=== PATIENT | female | born 1965 | race Caucasian/White ===

== ENCOUNTER 2017-05-08 19:05 | Inpatient (IN) | payer OTHER ==
[~2017-05-08] VITALS: Ht 152.4 cm; Wt 95.8 kg
[2017-05-08 20:01] LABS: microscopic required? NO
[2017-05-08 20:13] LABS: BASOPHIL % 0.7 % (0-2); PLATELET COUNT 256 x10^3mcL (130-400)
[2017-05-08 20:14] LABS: CALCIUM 9.1 mg/dL (8.5-10.1); CARBON DIOXIDE 30.2 mmol/L (21-32); CREATININE SERUM 1.2 mg/dL (0.6-1.0)
[2017-05-08 20:24] LABS: urine erythrocyte NEGATIVE (NEGATIVE)
[2017-05-08 20:26] LABS: ALBUMIN 3.4 g/dL (3.4-5.0); BILIRUBIN TOTAL 0.4 mg/dL (0.20-1.00); T4(THYROXINE) 7.9 ug/dL (4.7-13.3); TOTAL PROTEIN, SERUM 7.5 g/dL (6.4-8.2)
[2017-05-08 20:32] LABS: AMPHETAMINE QUAL UR NONE DETECTED (NEG <=1000)
[2017-05-08] MEDS ORDERED: ENALAPRIL MALEA20 MG (22:30)
[2017-05-08] MEDS ORDERED: METFORMIN HCL1000 MG (22:30)
[2017-05-08] MEDS ORDERED: MICROZIDE12.5 MG (22:31)
[2017-05-08] MEDS ORDERED: PREMARIN0.625 MG (22:31)
[2017-05-08] MEDS ORDERED: LIPITOR20 MG (22:31)
[2017-05-08] MEDS ORDERED: CARVEDILOL12.5 M1 (22:31)
[2017-05-08] MEDS ORDERED: LASIX40 MG (22:32)
[2017-05-08] MEDS ORDERED: NOR5 (22:32)
[2017-05-08 23:08] VITALS: BP 144/64
[2017-05-08 23:13] VITALS: BP 144/60
[2017-05-09 01:47] VITALS: BP 113/54
[2017-05-09 02:09] LABS: MAGNESIUM 1.8 mg/dL (1.8-2.4); PHOSPHOROUS 4.2 mg/dL (2.5-4.9)
[2017-05-09 04:35] LABS: CALCIUM 8.4 mg/dL (8.5-10.1); CARBON DIOXIDE 25.4 mmol/L (21-32); CHLORIDE SERUM 104 mmol/L (98-107); CREATININE SERUM 0.9 mg/dL (0.6-1.0); GFR1 > 60 mL/min; GLUCOSE SERUM 182 mg/dL (74-106); POTASSIUM SERUM 3.9 mmol/L (3.5-5.1); SODIUM SERUM 139 mmol/L (136-145)
[2017-05-09 04:48] LABS: T3 TOTAL 1.13 ng/mL
[2017-05-09 05:53] VITALS: BP 129/64
[2017-05-09 09:43] VITALS: BP 134/66
[2017-05-09 12:28] VITALS: BP 121/52
[2017-05-09 16:41] VITALS: BP 124/52
== END 2017-05-09 18:34 | disposition left against medical advice (07) | DRG 205 ==
LOC: ED 19:05 → DU 22:07
PROVIDERS: Emergency Medicine; ADMIT Family Medicine
DX: M94.0 Chondrocostal junction syndrome [Tietze] (principal); N17.0 Acute kidney failure with tubular necrosis; Z68.41 Body mass index [BMI] 40.0-44.9, adult; C64.2 Malignant neoplasm of left kidney, except renal pelvis; E11.65 Type 2 diabetes mellitus with hyperglycemia; G90.9 Disorder of the autonomic nervous system, unspecified; E66.01 Morbid (severe) obesity due to excess calories; I10 Essential (primary) hypertension; E78.00 Pure hypercholesterolemia, unspecified; Z53.21 Procedure and treatment not carried out due to patient leaving prior to being seen by health care provider; E02 Subclinical iodine-deficiency hypothyroidism; Z79.84 Long term (current) use of oral hypoglycemic drugs; Z90.710 Acquired absence of both cervix and uterus; Z90.5 Acquired absence of kidney
CPT/HCPCS: 82962; 83880; J1815; J2405; J7030; Q0092